=== PATIENT | female | born 1995 | race African-American/Black ===

== ENCOUNTER 2023-08-03 17:51 | Emergency (ER) | payer MEDICAID, SELFPAY ==
[2023-08-03] MEDS ORDERED: Ibuprofen 200 MG TAB ONE (18:29)
[2023-08-03] MEDS ORDERED: Sodium Chloride 0.9% 1,000 ML ONE (18:29)
[2023-08-03] MEDS ORDERED: Ondansetron ODT 4 MG TAB ONE (18:42)
[2023-08-03 19:10] LABS: Bilirubin Negative (Negative); Blood, Urine Negative (Negative); Clarity Clear (Clear); Glucose, Urine (Dipstick) Negative (Negative); Ketone, Urine Negative (Negative); Leukocyte Negative (Negative); Nitrite Negative (Negative); Protein, Urine (Dipstick) 30 mg/dL (Neg-Trace); pH, Urine 7.5 (5.0-9.0)
[2023-08-03 19:12] LABS: CAUTI Indications for Culture Pelvic or flank pain
[2023-08-03 19:18] LABS: Bacteria/HPF 1+ HPF (None Seen); Mucous/LPF 1+ LPF (<2+); RBC/HPF 0-3 HPF (0-3); Squamous Epithelial 21-50 HPF (0-3); Urine Culture Reflex No No; WBC/HPF None Seen HPF (0-3)
[2023-08-03] MEDS ORDERED: Oseltamivir 75 MG CAP ONE (19:54)
== END 2023-08-03 20:05 | disposition home or self-care (01) ==
LOC: NAV ERS 17:51
DX: J11.1 Influenza due to unidentified influenza virus with other respiratory manifestations (principal)
CPT/HCPCS: 81001; 87081; 87430; 87807; 96360; J7050; Q0162